=== PATIENT | male | born 1955 | race Caucasian/White ===

== ENCOUNTER 2016-09-13 15:41 | Inpatient (IN) | payer BC ==
[~2016-09-13] VITALS: Ht 167.6 cm; Wt 98.9 kg
[~2016-09-13 15:41] MED LIST: ALLOPURINOL300 MG PO; AMLODIPINE10 MG PO; FLEXERIL PO; LORTAB 10-325 M1 TAB PO; MELOXICAM15 MG PO; METFORMIN HCL500 M1 PO; ZESTRIL/PRINIV2.5 MG PO; ZESTRIL10 M1 PO
[2016-09-17 08:05] LABS: HEMATOCRIT 42.2 % (39.0-50.0); HEMOGLOBIN 14.8 g/dl (14.0-18.0); IMMATURE GRANULOCYTES 0.4 % (0.0-1.0); MEAN CELL VOLUME 89.6 fL CALC (80.0-100.0); MEAN CORPUSCULAR HGB 31.4 pG CALC (26.0-32.0); MEAN CORPUSCULAR HGB CONC 35.1 g/L CALC (32.0-36.0); NEUT# 2.94 thou/uL (1.82-7.42); RED BLOOD COUNT 4.71 mill/uL (4.70-6.10); RED CELL DISTRI WIDTH 13.6 % (11.5-15.5)
[2016-09-17 08:16] LABS: ALBUMIN 4.5 g/dL (3.2-5.0); ALKALINE PHOSPHATASE 44 u/l (38-126); ANION GAP 15 (6-22 (CALC)); BILIRUBIN, TOTAL 0.7 mg/dL (0.0-1.4); BUN 11 mg/dL (9-20); BUN/CREATININE RATIO 15 (12-20 (CALC)); CALCIUM 9.6 mg/dL (8.4-10.2); CARBON DIOXIDE 25 mmol/l (22-30); CHLORIDE 102 mmol/l (95-108); CREATININE 0.8 mg/dL (0.7-1.3); GFR > 60 ML/MIN (>=60 (CALC)); GFR FOR AFR.AMER. > 60 ML/MIN (>=60 (CALC)); GLUCOSE 107 mg/dL (75-110); POTASSIUM 4.3 mmol/l (3.5-5.1); SGOT/AST 47 u/l (17-59); SGPT/ALT 61 u/l (21-72); SODIUM 138 mmol/l (137-146); TOTAL PROTEIN 7.9 g/dL (6.3-8.2)
[2016-09-17 13:45] VITALS: BP 118/72
[2016-09-17 14:00] VITALS: BP 113/40
[2016-09-17 14:15] VITALS: BP 132/70
[2016-09-17 14:31] VITALS: BP 116/76
[2016-09-17 15:52] VITALS: BP 122/87
[2016-09-17 20:00] VITALS: BP 118/77
[2016-09-18 04:48] VITALS: BP 142/90
[2016-09-18 07:25] LABS: HEMATOCRIT 36.3 % (39.0-50.0); HEMOGLOBIN 12.4 g/dl (14.0-18.0)
[2016-09-18 08:02] VITALS: BP 122/87
[2016-09-18 10:02] VITALS: BP 122/87
== END 2016-09-18 15:31 | DRG 483 ==
LOC: ENPENDDIS → MS2 09-17 06:46
PROVIDERS: ADMIT Orthopaedic Surgery; ATTEND Orthopaedic Surgery
PROC: 0RRK00Z Replacement of Left Shoulder Joint with Reverse Ball and Socket Synthetic Substitute, Open Approach (ICD-10-PCS; principal; 2016-09-17)
PROC: 0LS40ZZ Reposition Left Upper Arm Tendon, Open Approach (ICD-10-PCS; 2016-09-17)
DX: M75.122 Complete rotator cuff tear or rupture of left shoulder, not specified as traumatic (principal); I10 Essential (primary) hypertension; M19.012 Primary osteoarthritis, left shoulder; S46.112A Strain of muscle, fascia and tendon of long head of biceps, left arm, initial encounter; E78.5 Hyperlipidemia, unspecified; E11.9 Type 2 diabetes mellitus without complications; M10.9 Gout, unspecified; X58.XXXA Exposure to other specified factors, initial encounter
CPT/HCPCS: J1100; J2710